=== PATIENT | male | born 1955 | race Caucasian/White ===

== ENCOUNTER 2024-05-08 14:07 | Emergency (ER) | payer MEDICARE, BC ==
[~2024-05-08] VITALS: Ht 182.9 cm; Wt 103.4 kg
[2024-05-08 14:16] VITALS: TEMP 98.8
[2024-05-08] MEDS ORDERED: LIDOCAINE 2% JEL UROJET 10 ML MM ONE ×2 (15:11→21:35)
[2024-05-08 15:53] LABS: BASOPHILS % (AUTO) 0.5 % (0.0-2.0); EOSINOPHILS % (AUTO) 0.1 % (0.0-6.0); HEMATOCRIT 37 % (39-51); LYMPHOCYTES # (AUTO) 1.2 K/uL (0.8-4.8); LYMPHOCYTES % (AUTO) 12.2 % (20.0-44.0); MEAN CORPUSCULAR HEMOGLOBIN 31 PG (26.0-33.0); MEAN CORPUSCULAR HGB CONC 32 g/dl (31.0-36.0); MEAN CORPUSCULAR VOLUME 97 fL (80-96); MONOCYTES # (AUTO) 0.8 K/uL (0.1-1.30); MONOCYTES % (AUTO) 8.5 % (2.0-12.0); NEUTROPHILS # (AUTO) 7.7 K/uL (1.8-8.9); NEUTROPHILS % (AUTO) 78.7 % (43.0-81.0); PLATELET COUNT (AUTO) 295 K/uL (150-450); RED BLOOD CELL COUNT(AUTO) 3.82 MIL/uL (4.5-6.0); RED CELL DISTRIBUTION WIDTH 15.2 % (11.5-15.0); WHITE BLOOD COUNT (AUTO) 9.8 K/uL (4.3-11.0)
[2024-05-08 16:04] LABS: CALCIUM, SERUM 8.8 mg/dL (8.5-10.1); CREATININE 4.4 mg/dL (0.6-1.3)
[2024-05-08 16:11] LABS: INR 1.18 (0.91-1.10); PROTHROMBIN TIME 12.4 SECS (9.2-11.1)
[2024-05-08] MEDS: IV NS 0.9% 1,000 ML BAG IV ONE (17:45)
[2024-05-08 17:58] LABS: APPEARANCE,URINE BLOODY (CLEAR)
[2024-05-08 17:59] LABS: COLOR,URINE RED (YELLOW)
[2024-05-08 18:02] LABS: RBC,URINE TOO NUMEROUS TO COUN /HPF (0-2)
[2024-05-08 18:03] LABS: BACTERIA,URINE 2+ /HPF (None Seen); SQUAMOUS EPITHELIAL CELL,UR 0-2 /HPF (None Seen)
[2024-05-08 18:37] LABS: BASOPHILS # (AUTO) 0.1 K/uL (0.0-0.2); BASOPHILS % (AUTO) 0.6 % (0.0-2.0); EOSINOPHILS # (AUTO) 0.1 K/uL (0.0-0.7); EOSINOPHILS % (AUTO) 0.5 % (0.0-6.0); HEMATOCRIT 33 % (39-51); HEMOGLOBIN 10.9 g/dL (13.5-17.5); LYMPHOCYTES # (AUTO) 0.4 K/uL (0.8-4.8); LYMPHOCYTES % (AUTO) 3.5 % (20.0-44.0); MEAN CORPUSCULAR HEMOGLOBIN 31 PG (26.0-33.0); MEAN CORPUSCULAR HGB CONC 33 g/dl (31.0-36.0); MEAN CORPUSCULAR VOLUME 95 fL (80-96); MONOCYTES # (AUTO) 0.5 K/uL (0.1-1.30); MONOCYTES % (AUTO) 4.2 % (2.0-12.0); NEUTROPHILS % (AUTO) 91.2 % (43.0-81.0); PLATELET COUNT (AUTO) 286 K/uL (150-450); RED BLOOD CELL COUNT(AUTO) 3.51 MIL/uL (4.5-6.0); WHITE BLOOD COUNT (AUTO) 12.1 K/uL (4.3-11.0)
[2024-05-08] MEDS ORDERED: APIX5TAB PO (19:18)
[2024-05-08] MEDS ORDERED: BISA10SU11 RC (19:18)
[2024-05-08] MEDS ORDERED: TAMS-12 PO (19:18)
[2024-05-08] MEDS ORDERED: DOCU100T2 PO (19:18)
[2024-05-08] MEDS ORDERED: NA P133E RC (19:18)
[2024-05-08] MEDS ORDERED: CRAN425C6 PO (19:18)
[2024-05-08] MEDS ORDERED: MAGN400O6 PO (19:18)
[2024-05-08] MEDS ORDERED: TRIA1TAB3 PO (19:18)
[2024-05-08] MEDS ORDERED: GABA300C PO (19:18)
[2024-05-08] MEDS ORDERED: ACET-868 PO (19:18)
[2024-05-08 19:55] VITALS: BP 119/60; O2SAT 92
[2024-05-08] MEDS ORDERED: WATER FOR INJECTION,STERILE 30 ML ONE (21:36)
== END 2024-05-09 00:48 | disposition short-term general hospital (02) ==
LOC: ER 14:18
DX: N30.91 Cystitis, unspecified with hematuria (principal); R10.9 Unspecified abdominal pain; N18.9 Chronic kidney disease, unspecified; N40.0 Benign prostatic hyperplasia without lower urinary tract symptoms; Z79.01 Long term (current) use of anticoagulants; Z79.899 Other long term (current) drug therapy; Z87.440 Personal history of urinary (tract) infections
CPT/HCPCS: 36415; 51700; 74176; 80048; 81001; 85025; 85610; 86850; 96360; 99285; A4217; J3490